=== PATIENT | male | born 1990 | race African-American/Black ===

== ENCOUNTER 2016-07-12 17:55 | Emergency (ER) | payer SELFPAY ==
[~2016-07-12 17:55] MED LIST: DOXYCYCLINE PO; NO MEDICATIONS; ROBAXIN 750750 M1 PO; TYLENOL #3 PO
[2016-07-12 18:01] LABS: INFLUENZA A NEG (NEG); INFLUENZA B NEG (NEG)
[2016-07-12] MEDS ORDERED: PROMETHAZI6.25 MG/5 PO (18:23)
[2016-07-12] MEDS ORDERED: IBUPROFEN800 MG PO (18:23)
== END 2016-07-12 18:20 | disposition home or self-care (01) ==
LOC: SED 17:55
PROVIDERS: Nurse Practitioner
DX: J06.9 Acute upper respiratory infection, unspecified (principal); I10 Essential (primary) hypertension; F17.210 Nicotine dependence, cigarettes, uncomplicated
CPT/HCPCS: 87651; 87804; 99283

== ENCOUNTER 2016-07-15 15:06 | Emergency (ER) | payer SELFPAY ==
[~2016-07-15 15:06] MED LIST changes: +IBUPROFEN800 MG PO; +PROMETHAZI6.25 MG/5 PO
== END 2016-07-15 15:21 | disposition home or self-care (01) ==
LOC: SED 15:06
DX: R11.2 Nausea with vomiting, unspecified (principal); R19.7 Diarrhea, unspecified; R05 Cough; F17.200 Nicotine dependence, unspecified, uncomplicated
CPT/HCPCS: 99283

== ENCOUNTER 2016-10-09 06:07 | Emergency (ER) | payer SELFPAY ==
--- NOTE | ~2016-10-09 | CT71 ---
[facility] RADIOLOGY TEXT RESULTS PATIENT: VÍCTOR MAX LOCATION: SED : 90 UNIT #: [id number] AGE: [address]: Nunu Irving MD SEX: M ORDER DR: [id number] [address] [id number] E MR#: [id number] Acc #: [id number] NAME: VÍCTOR MAX. : 1990 SEX: M STUDY DATE/TIME: 10/09/2016 7:11 UNIT: SED ROOM: STUDY DESCRIPTION: CT Head Wo Contrast Attending Physician: Kenneth Elizabeth M.D. Ordering Physician: Kenneth Elizabeth M.D. Primary Care Physician: Primary Care Physician No MEDICAL IMAGING REPORT This report is preliminary unless electronic signature is present. EXAM CT brain without contrast media, 10/09/2016 COMPARISON None HISTORY Sharp headache. Vomiting this morning. Pain across forehead. TECHNIQUE Axial imaging of the brain was performed without contrast media. This CT exam was performed with one or more of the following radiation dose reduction techniques: automatic exposure control, adjustment of mA and/or kV according to patient size, and iterative reconstruction. FINDINGS Ventricular size and configuration is normal. No intra or extraaxial mass lesions, fluid collections or mass effect are seen. No focal areas of low attenuation or evidence of acute intracranial hemorrhage. CONCLUSION Negative noncontrast CT of the brain. Dictated by... Kenneth Gurrola M.D. THIS IS AN ELECTRONICALLY VERIFIED REPORT Kenneth Gurrola M.D. at 10/09/2016 5:02 PM Jim TD: 10/09/2016 12:33 [facility] RADIOLOGY TEXT RESULTS PATIENT: VÍCTOR MAX LOCATION: SED : 90 UNIT #: [id number] AGE: [address]: Nunu Irving MD SEX: M ORDER DR: JOB #: [id number] MEDICAL IMAGING REPORT Page 1 of 1
[2016-10-09 07:21] LABS: BASOPHIL# 0.1 X10e3 (0-0.3); EOSINOPHIL# 0.3 X10e3 (0-0.7); EOSINOPHIL% 5.5 % (0.0-7.0); HEMATOCRIT 40.7 % (38.0-50.0); HEMOGLOBIN 14.2 gm/dL (13.0-16.0); LYMPHOCYTE# 2.3 X10e3 (1.0-3.5); LYMPHOCYTE% 37.1 % (17.0-45.0); MEAN CORPUSCULAR HEMOGLOBIN 30.9 PG (28-34); MEAN CORPUSCULAR HGB CONC 34.7 g/dL (30-36); MEAN PLATELET VOLUME 9.3 FL (6.5-11.5); MONOCYTE# 0.7 X10e3 (0-1.0); MONOCYTE% 10.7 % (3.0-12.0); NEUTROPHIL# 2.8 X10e3 (1.5-7.1); NEUTROPHIL% 45.7 % (40-75); PLATELET COUNT 242 X10e3 (140-420); RED BLOOD COUNT 4.58 X10e (3.90-5.60); RED CELL DISTRIBUTION WIDTH 12.7 % (11.0-15.5); WHITE BLOOD COUNT 6.2 X10e3 (4.0-10.5)
[2016-10-09 07:24] LABS: DIFF IND NO
[2016-10-09 07:36] LABS: BUN/CREATININE RATIO 11.11; CALCIUM SERUM 9.5 mg/dL (8.4-10.2); CREATININE SERUM 0.9 mg/dL (0.6-1.4); GLOM FILT RATE Estimated 136.1 mL/min (>60); POTASSIUM 3.3 mmol/L (3.5-5.1)
== END 2016-10-09 08:47 | disposition home or self-care (01) ==
LOC: SED 06:07
PROVIDERS: Emergency Medicine
DX: G44.209 Tension-type headache, unspecified, not intractable (principal); R11.2 Nausea with vomiting, unspecified; F17.200 Nicotine dependence, unspecified, uncomplicated
CPT/HCPCS: 36415; 70450; 80048; 85025; 96361; 96374; 96375; 99284; J1200; J2765